=== PATIENT | female | born 1990 | race Caucasian/White ===

== ENCOUNTER 2024-03-09 07:14 | Inpatient (IN) ==
[2024-03-09] MEDS ORDERED: OXYTOCIN 30 UNITS/NSS 30 UNITS/500 ML BAG IV PRN ×2 (07:37→18:01)
[2024-03-09 08:04] LABS: Hematocrit (blood only) 31.1 % (37.0-47.0); Hemoglobin 10.1 g/dl (12.0-16.0); Mean Corpuscular Hemoglobin 25.4 pg (25.0-34.0); Mean Corpuscular Hgb Conc 32.5 g/dL (32.0-36.0); Mean Corpuscular Volume 78.1 fL (80.0-100.0); Platelet Count 210 K/uL (130-400); RDW Coefficient of Variation 16.3 % (11.5-14.5); RDW Standard Deviation 45.1 fL (36.4-46.3); Red Blood Count 3.98 M/uL (4.20-5.40); White Blood Count 9.13 K/ul (4.8-10.8)
[2024-03-09] MEDS: LACTATED RINGER'S 1,000 ML IV PRN (08:26)
[2024-03-09] MEDS: OXYTOCIN 30 UNITS/NSS 30 UNITS/500 ML BAG IV PRN (08:27)
[2024-03-09] MEDS: PANTOprazole 40 MG TAB PO SCH (09:41)
--- NOTE | 2024-03-09 10:32 | History & Physical Report ---
Date of Service March 09, 2024 Assessment & Plan (1) Elderly multigravida: Plan: Emmie is a 33-year-old G2, P1 presents for induction of labor at 40 weeks 5 days gestational. 1. Fetus: Category 1 tracing 2. Labor: Will start with oxytocin per regular protocol. Will AROM when appropriate 3. GBS negative 4. Vitals within normal limit (2) Term : (3) Encounter for induction of labor: Admission and Anticipated Discharge Date Admission Date: March 09, 2024 History of Present Illness Primary Care Provider: NO PCP Emmie is a 33-year-old G2, P1 currently at 40 weeks 5 days gestational age presents for question of labor. complicated by: AMA Weekly NST's @ 36weeks Hx PIH with previous baby asa 12 weeks Received flu shot at [facility] Anemia in *Heme consult OB Labs: Blood Type O Positive 07/28/23 Antibody Screen NEGATIVE 07/28/23 Hemoglobin 9.7 g/dl (12.0-16.0) L 02/08/24 Hematocrit 29.8 % (37.0-47.0) L 02/08/24 Mean Corpuscular Volume 78.8 fL (80.0-100.0) L 07/28/23 Platelet Count 247 K/uL (130-400) 07/28/23 Rubella IgG Antibody Immune (Immune) 07/28/23 Rapid Plasma Reagin Nonreactive (Nonreactive) 07/28/23 Hepatitis B Surface Antigen. NON-REACTIVE (NON-REACTIVE) 07/28/23 Hepatitis C Antibody (EIA) NON-REACTIVE (NON-REACTIVE) 07/28/23 HIV (1&2) Ag and Ab Confirmation NON-REACTIVE (NON-REACTIVE) 07/28/23 Glucose 1 Hour 50 gm Load 108 mg/dl (70-130) 12/11/23 OB Optional Labs: Chlamydia trachomatis RNA Not Detected (NotDetected) 07/28/23 Neisseria gonorrhoeae RNA Not Detected (NotDetected) 07/28/23 Allergies Allergy/AdvReac Type Severity Reaction Status Date / Time ciprofloxacin [From Cipro] Allergy Severe Anaphylaxis Verified 03/08/24 09:51 levofloxacin [From Levaquin] Allergy Severe Anaphylaxis Verified 03/08/24 09:51 moxifloxacin [From Avelox] Allergy Severe Anaphylaxis Verified 03/08/24 09:51 Home Medications Medication Instructions Recorded Confirmed Type pantoprazole 20 mg PO 1XD 07/22/23 03/09/24 History 21-iron fu-folic acid 1 tab PO 1XD 07/22/23 03/09/24 History [ Complete] aspirin 81 mg tablet,delayed 81 mg PO DAILY 10/23/23 03/09/24 History release (Adult Low Dose Aspirin) Patient History Medical History (Updated 03/09/24 @ 10:34 by Glenroy Mcgrath MD) GERD (gastroesophageal reflux disease) History of chicken pox Surgical History Status post colposcopy S/P breast augmentation S/P excision of ganglion cyst Family History Grandmother (Paternal) Breast cancer Father Heart disease Mother Hypertension Denies family history of Ovarian cancer Colorectal cancer Social History Smoking Status: Never smoker Do You Dip or Chew Tobacco: No; Hx Alcohol Use: No Hx Substance Use: No Preferred Language: Mongolian Case Specialist Required: No Beliefs That Will Affect Care: None marital status: Single marital status details: Simon Palumbo (30) [phone] Current Living Situation: Family and Significant Other Current Living Situation Comment: lives with fob, son, dog current occupational status: employed 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 [employer] Other Information That Helps Us Care for You: No Feels Safe at Home: Yes Safety Concerns: Feels Safe At This Time Assistive Devices: None Physical Exam Genitourinary: OB Exam Abdomen: + vertex Manual OB Exam: + cervical dilation (3), + cervical effacement 60% and + station -2 OB Exam Monitor Tracing: + external FHT monitor used, + external uterine monitor used, + category I and + normal FHT variability; no early decelerations present, no late decelerations present and no variable decelerations Results & Data Vital Signs (Past 12 Hours) Vital Signs Temp Pulse Resp BP 03/09/24 08:35 69 03/09/24 08:35 109/71 03/09/24 08:00 36.8 C 72 16 116/77 03/09/24 07:37 72 116/77 03/09/24 07:35 18 03/09/24 07:35 36.8 C 18 Code Status & VTE Plan VTE Prophylaxis Plan VTE Prophylaxis will be ordered: No Coding Level of Care Code None Diagnoses Multigravida of advanced maternal age in third trimester O09.523 Trimester: third trimester Term Z34.90 Encounter for induction of labor Z34.90 (1) Elderly multigravida Trimester: third trimester Qualified Code(s): O09.523 - Supervision of elderly multigravida, third trimester
--- NOTE | 2024-03-09 15:28 | Anesthesiology Consultation ---
Date of Service March 09, 2024 Assessment & Plan (1) Encounter for pre-operative examination: Chart Review Chart Review: Acceptable Risk for Labor Epidural History Height/Weight Height: 5 ft 5 in Weight: 66.406 kg Allergies Allergy/AdvReac Type Severity Reaction Status Date / Time ciprofloxacin [From Cipro] Allergy Severe Anaphylaxis Verified 03/08/24 09:51 levofloxacin [From Levaquin] Allergy Severe Anaphylaxis Verified 03/08/24 09:51 moxifloxacin [From Avelox] Allergy Severe Anaphylaxis Verified 03/08/24 09:51 Medications Home Medications Medication Instructions Recorded Confirmed Last Taken pantoprazole 20 mg PO 1XD 07/22/23 03/09/24 03/09/24 04:30 21-iron fu-folic acid 1 tab PO 1XD 07/22/23 03/09/24 03/08/24 20:00 [ Complete] aspirin 81 mg tablet,delayed 81 mg PO DAILY 10/23/23 03/09/24 03/08/24 21:00 release (Adult Low Dose Aspirin) Active Medications Generic Name Dose Route Start Last Admin Trade Name Rickie PRN Reason Stop Dose Admin Lactated Ringer's 1,000 mls @ 125 mls/hr 03/09/24 07:37 03/09/24 14:14 Lr IV 03/11/24 07:36 125 mls/hr .Q8H PRN Administration L&D Protocol Protocol Oxytocin 30 units in 500 mls @ 22 mls/hr 03/09/24 07:43 03/09/24 15:17 Pitocin 30 Units/Nss IV 03/11/24 07:42 1.32 units/hr .[id number] PRN 22 mls/hr Labor Induction/Augmentation Titration Protocol 1.32 UNITS/HR Pantoprazole Sodium 40 mg 03/09/24 07:45 03/09/24 09:41 Pantoprazole 40 Mg Tab PO 04/08/24 07:44 Not Given DAILY TOÑO Past Medical History Medical History GERD (gastroesophageal reflux disease) History of chicken pox Past Family History Family History Grandmother (Paternal) Breast cancer Father Heart disease Mother Hypertension Denies family history of Ovarian cancer Colorectal cancer Past Surgical History Surgical History Status post colposcopy S/P breast augmentation S/P excision of ganglion cyst Social History Smoking Status: Never smoker Do You Dip or Chew Tobacco: No Hx Alcohol Use: No Hx Substance Use: No Physical Exam Vital Signs Last Vital Signs Temp 36.8 C 03/09/24 12:30 Pulse 59 L 03/09/24 15:16 Resp 18 03/09/24 12:30 BP 118/81 03/09/24 15:16 Testing Laboratory Results 03/09/24 07:41
[2024-03-09] MEDS: fentANYL 2 MCG/ML BUPIVacaine 0.125%-NSS 100ML BAG ONE (16:05)
[2024-03-09] MEDS ORDERED: LIDOCAINE 2% MPF LOCAL 5 ML VIAL EPI PRN (16:08)
[2024-03-09] MEDS ORDERED: NALOXONE HCL 0.4 MG/1 ML VIAL/CARP IV PRN (16:08)
[2024-03-09] MEDS ORDERED: ROPIVACAINE 0.5% PF 5 MG/ML 20 ML VIAL EPI PRN (16:08)
[2024-03-09] MEDS ORDERED: BUPIVACAINE 0.25% PF 30 ML VIAL EPI PRN (16:08)
[2024-03-09] MEDS ORDERED: ONDANSETRON INJ 2 MG/ML 2 ML VIAL IV PRN (16:08)
[2024-03-09] MEDS ORDERED: fentaNYL citrate PF 100 MCG/2 ML VIAL EPI PRN (16:08)
[2024-03-09] MEDS ORDERED: fentANYL 2 MCG/ML BUPIVacaine 0.125%-NSS 100ML BAG EPI PRN (16:08)
[2024-03-09] MEDS ORDERED: SODIUM CHLORIDE 0.9% PF INJ 10 ML VIAL EPI PRN (16:08)
[2024-03-09] MEDS ORDERED: NALOXONE HCL 1 MG in SODIUM CHLORIDE 0.9% 1,000 ML IV PRN (16:08)
[2024-03-09] MEDS: ePHEDrine sulfate 50 MG/ML AMP IV PRN (16:10)
[2024-03-09] MEDS: ePHEDrine sulfate 50 MG/ML AMP ONE (16:10)
[2024-03-09] MEDS: fentaNYL citrate PF 100 MCG/2 ML VIAL EPI STA (16:27)
[2024-03-09] MEDS: SODIUM CHLORIDE 0.9% PF INJ 10 ML VIAL EPI STA (16:28)
[2024-03-09] MEDS: LIDOCAINE 2%/EPINEPHRINE 1:200,000 20 ML PF EPI STA (16:28)
[2024-03-09] MEDS: BUPIVACAINE 0.25% PF 30 ML VIAL ONE (16:29)
[2024-03-09] MEDS: SODIUM CHLORIDE 0.9% PF INJ 10 ML VIAL ONE (16:29)
[2024-03-09] MEDS: fentaNYL citrate PF 100 MCG/2 ML VIAL ONE (16:29)
[2024-03-09] MEDS: BUPIVACAINE 0.25% PF 30 ML VIAL EPI STA (16:29)
[2024-03-09] MEDS: LIDOCAINE 2%/EPINEPHRINE 1:200,000 20 ML PF ONE (16:29)
[2024-03-09] MEDS: miSOPROStoL 200 MCG TAB ONE (17:55)
[2024-03-09] MEDS ORDERED: bisacodyL 10 MG SUPP PR PRN (18:01)
[2024-03-09] MEDS ORDERED: HYDROCORTISONE ACETATE 25 MG SUPP PR PRN (18:01)
--- NOTE | 2024-03-09 18:03 | Delivery Summary ---
Vaginal Delivery Summary Date of Service March 09, 2024 Vaginal Delivery Summary and 2nd Degree LAC [facility] Vaginal Delivery Charge Delivery Type Details: and 2nd Degree LAC
[2024-03-09] MEDS: miSOPROStoL 200 MCG TAB PR ONE (18:54)
[2024-03-09] MEDS: METHYLERGONOVINE MALEATE 0.2 MG/ML AMP IM ONE (18:57)
--- NOTE | 2024-03-09 19:19 | Anesthesia Procedure Note ---
Date of Service March 09, 2024 Anesthesia Post Epidural Note Vital Signs Vital Signs: Temp Pulse Resp BP Pulse Ox 36.5 C 73 16 131/61 100 03/09/24 16:00 03/09/24 19:16 03/09/24 17:30 03/09/24 19:16 03/09/24 19:15 Pain Intensity Bilateral Anterior Abdomen: Pain Intensity: 0 Notes Mental Status: alert / awake / arousable and participated in evaluation Nausea / Vomiting: adequately controlled Pain: adequately controlled Airway Patency, RR, SpO2: stable & adequate BP & HR: stable & adequate Hydration State: stable & adequate Neuraxial Anesthesia: was administered and sensory block is resolving Anesthetic Complications: no major complications apparent Epidural: Removed without complications and With tip intact
[2024-03-09] MEDS: LIDOCAINE 1% LOCAL 20 ML VIAL INFIL PRN (20:18)
--- NOTE | 2024-03-09 20:26 | Delivery Summary ---
Vaginal Delivery Summary Date of Service March 09, 2024 Vaginal Delivery Summary and 2nd Degree LAC Patient progressed to 10 cm dilated, 100% effaced, +2 station pushed over intact perineum with epidural anesthesia and delivered of viable with weight and Apgars pending. Head of the delivered without issue and a tight nuchal cord was noted which was delivered through. Shoulders and body quickly followed was noted to be vigorous soon after delivery and a 1 minute delayed cord clamping was initiated. Cord was double clamped and cut remained maternal abdomen. Cord blood obtained. Attention turned delivery the placenta was delivered intact three-vessel cord gentle cord traction. Inspection of the perineum vagina cervix there is noted to be a second-degree perineal laceration and bilateral periurethral and right labial. Secondary laceration was repaired with 3-0 Vicryl in traditional crown stitch. The right labial laceration extended to the external dermal layer and was repaired with interrupted stitch. Hemostasis was felt to be noted however during the recovery course patient was noted to have increased bleeding and reinspection noted bleeding from the bilateral periurethral lacerations. These were repaired with 3-0 Vicryl and continuous running stitch. Hemostasis was noted and was monitored for approximately 2 to 3 minutes to ensure that no additional bleeding noted. Decision was made to end the case at that time. Needle sponge and instrument counts correct at the completion of the case x 2. Both mother and stable in the immediate post delivery period. No complications noted and blood loss per QBL in chart [facility] Vaginal Delivery Charge Delivery Type Details: and 2nd Degree LAC
[2024-03-09] MEDS: BENZOCAINE 20% SPRY 85 APPLN/85 GM CAN EXT PRN (21:38)
[2024-03-09] MEDS: IBUPROFEN 600 MG TAB PO PRN (22:57)
[2024-03-09] MEDS: DOCUSATE SODIUM 100 MG CAP PO SCH (23:32)
[2024-03-10] MEDS: ACETAMINOPHEN 325 MG TAB PO PRN (01:18)
[2024-03-10 06:49] LABS: Hematocrit (blood only) 24.6 % (37.0-47.0); Hemoglobin 8.2 g/dl (12.0-16.0)
--- NOTE | 2024-03-10 07:05 | Obstetrical Progress Note ---
Date of Service <Bk Ross MD - Last Filed: 03/10/24 08:59> March 10, 2024 Assessment & Plan <Bk Ross MD - Last Filed: 03/10/24 08:59> (1) (normal spontaneous vaginal delivery): Plan 28 yo , status post w/ 2nd degree LAC on 03/10. - Pt doing well clinically. Is feeling better today, but mildly dizzy/lightheaded w/ increased standing. Eating well, voiding well, ambulating well. Pain well controlled with PRN pain meds. - Routine care -- OOB, ambulation, diet progression as tolerated - Patient is feeling somewhat weak, fatigued but w/out tachycardia or shortness of breath that would be concerning for anemia. Monitor today. Vital Signs reviewed and WNL. (Tmax at 36.8) Hemoglobin Reviewed. 10.1 (03/10) 8.2 (today). Blood Type: O+, GBS-, Rubella Immune. Encourage ambulation, monitor and control pain with Motrin PRN, resume regular diet, monitor lochia. Breast feeding encouraged. After discharge will have 6 week follow-up with Dr. Mcgrath. Pt counselled on discharge instructions, in event they are going home that day, but will likely leave tomorrow. <Glenroy Mcgrath MD - Last Filed: 03/11/24 10:13> (1) (normal spontaneous vaginal delivery): Subjective <Bk Ross MD - Last Filed: 03/10/24 08:59> Ambulation: ambulating normally Voiding: no voiding problems Passing Gas:: Yes Diet Tolerance:: regular diet Lochia:: Moderate Feeding Type:: breast feeding (combination of breast and bottle feeding) Current Pain Level(1-10): 5 (predominantly in perineal area, pain meds working) Constitutional: + chills and + fatigue; no fever Respiratory: no cough, no chest congestion or no dyspnea Cardiovascular: no chest pain or no palpitations Breast: + breast pain (some tenderness w/ feeding) Gastrointestinal: + abdominal pain and + nausea; no vomiting or no diarrhea/loose stools Genitourinary (female): + dysuria; no urinary frequency or no urinary urgency Neurologic: no tingling or no numbness Physical Exam <Bk Ross MD - Last Filed: 03/10/24 08:59> Constitutional WD/WN, vitals as above Respiratory normal respiratory effort, lungs clear to auscultation Cardiovascular RRR, no murmur, no edema Extremities: normal capillary refill; no calf tenderness Gastrointestinal (Abdomen) Inspection/Auscultation: abdomen normal to inspection and normal bowel sounds Psychiatric A+Ox3, euthymic affect Results & Data <Bk Ross MD - Last Filed: 03/10/24 08:59> Vital Signs (Past 12 Hours) Vital Signs Temp Pulse Pulse Resp BP BP Pulse Ox 03/10/24 03:00 36.8 C 76 18 110/75 97 03/09/24 23:00 36.5 C 65 18 118/78 98 03/09/24 20:55 37.3 C 63 18 123/86 100 03/09/24 20:16 68 03/09/24 20:16 105/65 03/09/24 20:15 100 03/09/24 20:15 67 03/09/24 20:10 100 03/09/24 20:10 68 03/09/24 20:06 74 03/09/24 20:06 114/72 03/09/24 20:05 100 03/09/24 20:05 79 03/09/24 20:00 100 03/09/24 20:00 77 03/09/24 19:56 70 03/09/24 19:56 122/77 03/09/24 19:55 100 03/09/24 19:55 71 03/09/24 19:50 100 03/09/24 19:50 66 03/09/24 19:46 77 03/09/24 19:46 124/58 L 03/09/24 19:45 100 03/09/24 19:45 63 03/09/24 19:41 89 L 03/09/24 19:41 72 03/09/24 19:40 96 03/09/24 19:40 63 03/09/24 19:36 70 03/09/24 19:36 118/65 03/09/24 19:35 100 03/09/24 19:35 62 03/09/24 19:34 91 03/09/24 19:34 71 03/09/24 19:30 100 03/09/24 19:30 64 03/09/24 19:26 72 03/09/24 19:26 125/62 03/09/24 19:25 100 03/09/24 19:25 61 03/09/24 19:20 100 03/09/24 19:20 67 03/09/24 19:18 94 03/09/24 19:18 73 03/09/24 19:16 73 03/09/24 19:16 131/61 03/09/24 19:15 100 03/09/24 19:15 74 03/09/24 19:12 91 03/09/24 19:12 64 03/09/24 19:08 100 03/09/24 19:08 66 03/09/24 19:06 70 03/09/24 19:06 127/76 O2 Del Method 03/10/24 03:00 Room Air 03/09/24 23:00 Room Air 03/09/24 20:55 Room Air 03/09/24 20:16 03/09/24 20:16 03/09/24 20:15 03/09/24 20:15 03/09/24 20:10 03/09/24 20:10 03/09/24 20:06 03/09/24 20:06 03/09/24 20:05 03/09/24 20:05 03/09/24 20:00 03/09/24 20:00 03/09/24 19:56 03/09/24 19:56 03/09/24 19:55 03/09/24 19:55 03/09/24 19:50 03/09/24 19:50 03/09/24 19:46 03/09/24 19:46 03/09/24 19:45 03/09/24 19:45 03/09/24 19:41 03/09/24 19:41 03/09/24 19:40 03/09/24 19:40 03/09/24 19:36 03/09/24 19:36 03/09/24 19:35 03/09/24 19:35 03/09/24 19:34 03/09/24 19:34 03/09/24 19:30 03/09/24 19:30 03/09/24 19:26 03/09/24 19:26 03/09/24 19:25 03/09/24 19:25 03/09/24 19:20 03/09/24 19:20 03/09/24 19:18 03/09/24 19:18 03/09/24 19:16 03/09/24 19:16 03/09/24 19:15 03/09/24 19:15 03/09/24 19:12 03/09/24 19:12 03/09/24 19:08 03/09/24 19:08 03/09/24 19:06 03/09/24 19:06 Supervising Physician <Glenroy Mcgrath MD - Last Filed: 03/11/24 10:13> Co-Signing Physician Notes Patient seen with resident and agree with the above findings and plan. Is noting some lightheadedness and dizziness with walking yesterday evening. Recommend continued monitoring if notes continued/persistent symptoms we will further discuss options for treatment. Hemoglobin at 8.2 today declined from 10.1. Otherwise doing well
[2024-03-10] MEDS: PRENATAL VITAMIN 1 TAB PO SCH (08:00)
[2024-03-10] MEDS: FERROUS SULFATE 325 MG TAB PO SCH (08:01)
[2024-03-10] MEDS: DIPHTHER/TETAN/PERTUS Vaccine (Tdap, Adol/Adult) 0.5mL IM ONE (12:21)
[2024-03-10] MEDS ORDERED: bisacodyL 5 MG TABEC PO SCH (20:00)
== END 2024-03-10 19:10 | disposition home or self-care (01) | DRG 807 ==
LOC: 4S1 07:14 → 4E2 21:09
DX: O70.1 Second degree perineal laceration during delivery; Z3A.40 40 weeks gestation of pregnancy; Z88.1 Allergy status to other antibiotic agents; O48.0 Post-term pregnancy; Z79.82 Long term (current) use of aspirin; Z37.0 Single live birth; O69.81X0 Labor and delivery complicated by cord around neck, without compression, not applicable or unspecified